=== PATIENT | male | born 1955 | race Caucasian/White ===

== ENCOUNTER 2018-10-11 23:59 | Inpatient (IN) | payer OTHER | END 2018-10-14 20:42 | disposition home or self-care (01) | LOC: WEST WING 10-13 11:57 → TELE 10-12 05:49 → ER 23:59 → TELE-WESTW 10-12 09:13 | DX: J44.1 Chronic obstructive pulmonary disease with (acute) exacerbation (principal); J96.00 Acute respiratory failure, unspecified whether with hypoxia or hypercapnia; R65.10 Systemic inflammatory response syndrome (SIRS) of non-infectious origin without acute organ dysfunction; I10 Essential (primary) hypertension; F17.210 Nicotine dependence, cigarettes, uncomplicated ==

== ENCOUNTER 2022-12-11 09:46 | Emergency (ER) | payer OTHER ==
[~2022-12-11] VITALS: Ht 180.3 cm; Wt 95.0 kg
[~2022-12-11 09:46] MED LIST: ASPI-543 PO; HYDR-531 PO; HYDR25TA4 PO; MULT1TAB95 PO; ZOLP10TA6 PO
[2022-12-11] MEDS ORDERED: SODIUM CHLORIDE 0.9% 2,850 ML IV ONE (11:00)
[2022-12-11] MEDS ORDERED: SODIUM CHLORIDE 0.9% 1,000 ML IV ONE (11:00)
[2022-12-11] MEDS ORDERED: IPRATROPIUM BROM 0.5 MG/2.5ML INH SOL NEB ONE ×3 (11:00→12:30)
[2022-12-11] MEDS ORDERED: ALBUTEROL SULF 2.5 MG/0.5ML(0.5%) NEB SOLN NEB ONE ×3 (11:00→12:30)
[2022-12-11] MEDS ORDERED: methylPREDNISolone SOD SUCC 125 MG/2 ML VL IV ONE (11:00)
[2022-12-11] MEDS ORDERED: MAGNESIUM SULFATE 1GM/100ML 100 ML IV ONE (11:00)
[2022-12-11 11:15] LABS: Hemoglobin 10.8 g/dL (13.5-17.5)
[2022-12-11 11:21] LABS: Mean Corpuscular Hemoglobin 23.9 pg (28.0-32.0); Mean Corpuscular Hgb Conc. 31.9 g/dL (32.0-36.0); Mean Corpuscular Volume 75.1 fL (80.0-100.0); Red Blood Cells 4.52 10^6/uL (4.5-5.90)
[2022-12-11 11:22] LABS: Red Cell Distribution Width 21.5 % (11.8-14.3)
[2022-12-11 11:25] LABS: Basophils % (manual) 0 (0.0-2.0); Blast Cells 0; Eosinophils % (manual) 0 (0-7); Metamyelocytes % 0; Myelocytes % 0; Promyelocytes % 0; Reactive Lymphocytes 0; White Blood Cell 34.1 10^3/uL (4.4-10.8)
[2022-12-11] MEDS ORDERED: DexAMETHasone SOD PHOS 10MG/1ML VIAL INJ IV ONE (11:30)
[2022-12-11] MEDS ORDERED: VANCOMYCIN 1GM/250ML 250 ML IV ONE (11:30)
[2022-12-11] MEDS ORDERED: EPINEPHrine HCL 250 ML IV SCH (11:30)
[2022-12-11] MEDS ORDERED: PIPERACILLIN-TAZOB 3.375GM 100 ML IV ONE ×2 (11:30→23:00)
[2022-12-11 11:31] LABS: INR 1.26 (0.9-1.15); Partial Thromboplastin Time 35.7 sec (24.6-33.4)
[2022-12-11 11:44] LABS: Band Neutrophils % (manual) 14; Lymphocytes % (manual) 4 (10.0-50.0); Monocytes % (manual) 1 (0-12)
[2022-12-11 11:51] LABS: Albumin 1.9 g/dL (3.4-5.0); Calcium 7.9 mg/dL (8.5-10.1); Magnesium 2.6 mg/dL (1.6-2.6); Potassium 4.4 mmol/L (3.5-5.1)
[2022-12-11 11:54] LABS: BUN/Creatinine Ratio 24.5 (10.0-20.0); Bilirubin, Total 6.8 mg/dL (0.2-1.0); Total Protein 6.1 g/dL (6.4-8.2)
[2022-12-11 12:03] VITALS: BP_SYST 114; BP_SYST 94; BP_DIAS 114; BP_DIAS 94
[2022-12-11] MEDS ORDERED: THIAMINE 100mg/ml INJ (200mg/2ml VIAL) IV ONE (12:30)
[2022-12-11] MEDS ORDERED: FOLIC ACID 1 MG in D5W 5% 50 ML INJ ONE (12:30)
[2022-12-11] MEDS ORDERED: SODIUM BICARBONATE 8.4 % INJ 50ML VIAL IV ONE ×2 (13:00→18:30)
[2022-12-11 13:16] LABS: Urine Bacteria NONE SEEN /hpf (None Seen); Urine Blood Negative /uL (Negative); Urine Hyaline Cast FEW /lpf (0 - 2); Urine Specific Gravity 1.017 (1.001-1.035); Urine WBC 3 /hpf (0 - 3)
[2022-12-11 14:20] VITALS: BP 94/48
[2022-12-11] MEDS ORDERED: fentaNYL CITRATE 100 MCG/2 ML VL IV ONE ×2 (17:30→20:45)
[2022-12-11 23:15] VITALS: BP 119/59
[2022-12-12] MEDS ORDERED: EPINEPHrine HCL 250 ML IV SCH (01:00)
[2022-12-12] MEDS ORDERED: EPINEPHrine HCL 250 ML IV ONE (01:30)
[2022-12-12] MEDS ORDERED: LORazepam 2MG/ML-1ML VIAL IV ONE (05:00)
[2022-12-12] MEDS ORDERED: SODIUM CHLORIDE 0.9% 1,000 ML IV ONE (07:00)
[2022-12-12] MEDS ORDERED: SODIUM BICARBONATE 8.4 % INJ 50ML VIAL IV ONE ×3 (07:00→10:30)
[2022-12-12] MEDS ORDERED: SODIUM CHLORIDE 0.9% 1,000 ML IV STA (07:42)
[2022-12-12] MEDS ORDERED: NOREPINEPHRINE 8 MG/250ML KIT 250 ML IV SCH (07:45)
[2022-12-12] MEDS ORDERED: SODIUM BICARBONATE 8.4% INJ 50ML SYRINGE ONE (07:53)
[2022-12-12] MEDS ORDERED: VANCOMYCIN 1GM/250ML 250 ML IV ONE (09:00)
[2022-12-12] MEDS ORDERED: ALBUTEROL SULF 2.5 MG/0.5ML(0.5%) NEB SOLN NEB ONE (10:30)
[2022-12-12] MEDS ORDERED: IPRATROPIUM BROM 0.5 MG/2.5ML INH SOL NEB ONE (10:30)
[2022-12-12] MEDS ORDERED: methylPREDNISolone SOD SUCC 125 MG/2 ML VL IV ONE (10:30)
[2022-12-12] MEDS ORDERED: ALBUTEROL SULF 2.5 MG/0.5ML(0.5%) NEB SOLN ONE (10:49)
[2022-12-12] MEDS ORDERED: IPRATROPIUM BROM 0.5 MG/2.5ML INH SOL ONE (10:49)
[2022-12-12 10:52] LABS: Albumin 1.9 g/dL (3.4-5.0); Potassium 4.7 mmol/L (3.5-5.1)
[2022-12-12 10:56] LABS: Bilirubin, Total 6.6 mg/dL (0.2-1.0); Total Protein 6.5 g/dL (6.4-8.2)
[2022-12-12 10:57] LABS: BUN/Creatinine Ratio 32.6 (10.0-20.0)
[2022-12-12 11:32] LABS: Hematocrit 32.2 % (41.0-53.0); Hemoglobin 10.5 g/dL (13.5-17.5); Mean Corpuscular Hemoglobin 24.5 pg (28.0-32.0); Mean Corpuscular Hgb Conc. 32.6 g/dL (32.0-36.0); Mean Corpuscular Volume 75.3 fL (80.0-100.0); Red Blood Cells 4.28 10^6/uL (4.5-5.90); White Blood Cell 28.6 10^3/uL (4.4-10.8)
[2022-12-12 11:34] LABS: Red Cell Distribution Width 21.2 % (11.8-14.3)
[2022-12-12 11:37] LABS: Basophils % (manual) 0 (0.0-2.0); Blast Cells 0; Eosinophils % (manual) 0 (0-7); Metamyelocytes % 0; Myelocytes % 0; Promyelocytes % 0; Reactive Lymphocytes 0
[2022-12-12] MEDS ORDERED: PIPERACILLIN-TAZOB 3.375GM 100 ML IV ONE (12:00)
[2022-12-12 12:08] LABS: Band Neutrophils % (manual) 5; Lymphocytes % (manual) 2 (10.0-50.0); Monocytes % (manual) 4 (0-12)
[2022-12-12 13:00] VITALS: BP 106/48
== END 2022-12-12 14:04 | disposition short-term general hospital (02) ==
LOC: EDBD 09:46 → EDSEX 09:46 → ER 09:46
DX: A41.9 Sepsis, unspecified organism (principal); N17.9 Acute kidney failure, unspecified; K72.90 Hepatic failure, unspecified without coma; J44.9 Chronic obstructive pulmonary disease, unspecified
CPT/HCPCS: 36415; 36600; 71045; 74181; 76705; 80053; 81001; 82140; 82805; 82962; 83605; 83690; 83735; 84484; 85007; 85027; 85610; 85730; 86850; 86900; 86901; 87040; 87077; 87086; 87186; 93005; 94640; 94660; 96361; 96365; 96366; 96367; 96368; 96375; 96376; 99285; J0171; J1100; J2060; J2543; J2930; J3010; J3370; J3411; J3475; J7030; J7060; J7644